=== PATIENT | female | born 1950 | race Hispanic/Latino ===

== ENCOUNTER 2021-04-15 14:44 | Outpatient (CLI) | payer MEDICARE | END 2021-04-15 14:45 | disposition home or self-care (01) | LOC: BICMAMMO 14:44 | PROVIDERS: ATTEND Nurse Practitioner Family | DX: Z12.31 Encounter for screening mammogram for malignant neoplasm of breast (principal) | CPT/HCPCS: 77063; 77067 ==

== ENCOUNTER 2021-09-10 14:05 | Emergency (ER) | payer MEDICARE ==
[2021-09-10] MEDS ORDERED: Ketorolac Tromethamine 30 MG/ML VIAL ONE (15:31)
== END 2021-09-10 17:13 | disposition home or self-care (01) ==
LOC: ERS 14:05
DX: S92.351A Displaced fracture of fifth metatarsal bone, right foot, initial encounter for closed fracture (principal); S93.401A Sprain of unspecified ligament of right ankle, initial encounter; S80.211A Abrasion, right knee, initial encounter; I10 Essential (primary) hypertension; W19.XXXA Unspecified fall, initial encounter
CPT/HCPCS: 96372; J1885

== ENCOUNTER 2022-05-09 11:59 | Outpatient (CLI) | payer MEDICARE | END 2022-05-09 12:00 | disposition home or self-care (01) | LOC: BICMAMMO 11:59 | PROVIDERS: ATTEND Nurse Practitioner Family | DX: Z12.31 Encounter for screening mammogram for malignant neoplasm of breast (principal) | CPT/HCPCS: 77063; 77067 ==

== ENCOUNTER 2023-02-18 10:31 | Emergency (ER) | payer MEDICARE ==
[2023-02-18 11:09] LABS: #Eosinphils 0.2 thou/uL (0.0-0.7); #Monocytes 0.6 thou/uL (0.11-0.59); #Neutrophils 8.5 thou/uL (1.40-6.50); %Basophils 0.4 % (0.0-1.0); %Eosinophils 1.6 % (0.0-10.0); %Lymphocytes 10.3 % (21.0-51.0); %Monocytes 5.3 % (0.0-10.0); Hematocrit 36.1 % (36.0-47.0); Hemoglobin 11.6 g/dL (12.0-16.0); Mean Corpuscular HGB CONC 32.1 g/dL (32.0-36.0); Mean Corpuscular Hemoglobin 27.5 pg (27.0-31.0); Mean Corpuscular Volume 85.5 fl (78.0-98.0); Platelet Count 242 10x3/uL (130-400); RBC Distribution Width 14.7 % (11.5-14.5); Red Blood Cell (RBC) Count 4.22 mill/uL (4.20-5.40); White Blood Cell (WBC) Count 10.4 10x3/uL (4.8-10.8)
[2023-02-18 11:22] LABS: ALT (SGPT) 15 U/L (8-55); AST (SGOT) 20 U/L (5-34); Albumin 4.1 g/dL (3.4-4.8); Alkaline Phosphatase 77 U/L (40-110); Anion Gap 17 mmol/L (10-20); BUN (Urea Nitrogen) 15 mg/dL (9.8-20.1); Bilirubin, Total 0.5 mg/dL (0.2-1.2); Calc. Creatinine Clearance 0 mL/min (70-130); Carbon Dioxide 24 mmol/L (23-31); Chloride 99 mmol/L (98-107); Estimated GFR 51; Globulin 3.9 g/dL (2.4-3.5); Glucose 143 mg/dL (83-110); Potassium 3.4 mmol/L (3.5-5.1); Sodium 137 mmol/L (136-145)
[2023-02-18 11:31] LABS: INR-International Normal Ratio 0.9; Prothrombin Time 12.9 sec (12.0-14.7)
[2023-02-18 11:32] LABS: PTT 29.1 sec (22.9-36.1)
[2023-02-18] MEDS ORDERED: Dexamethasone 10 MG/ML VIAL ONE (12:46)
[2023-02-18] MEDS ORDERED: cefTRIAXone (ROCEPHIN) 1 GM VIAL ONE (13:30)
[2023-02-18 14:24] LABS: Lactic Acid 2.1 mmol/L (0.5-2.2)
== END 2023-02-18 14:05 | disposition home or self-care (01) ==
LOC: ERS 10:31
DX: J15.9 Unspecified bacterial pneumonia (principal); I10 Essential (primary) hypertension; Z79.899 Other long term (current) drug therapy
CPT/HCPCS: 36415; 71045; 80053; 83605; 85025; 85610; 85730; 87040; 93005; 94760; 96365; 96375; J0696; J1100

== ENCOUNTER 2023-03-02 11:34 | Inpatient (IN) | payer MEDICARE ==
[~2023-03-02 11:34] MED LIST: Iopamidol-370 76% 500 ML MDV (1 ML CHARGE) ONE
[2023-03-02 12:26] LABS: #Eosinphils 0.4 thou/uL (0.0-0.7); #Monocytes 0.8 thou/uL (0.11-0.59); #Neutrophils 9.9 thou/uL (1.40-6.50); %Basophils 0.3 % (0.0-1.0); %Monocytes 6.5 % (0.0-10.0); %Neutrophils 80.1 % (42.0-75.0); Hematocrit 36.7 % (36.0-47.0); Hemoglobin 11.8 g/dL (12.0-16.0); Mean Corpuscular HGB CONC 32.2 g/dL (32.0-36.0); Mean Corpuscular Hemoglobin 26.7 pg (27.0-31.0); Platelet Count 291 10x3/uL (130-400); RBC Distribution Width 14.9 % (11.5-14.5); Red Blood Cell (RBC) Count 4.42 mill/uL (4.20-5.40); White Blood Cell (WBC) Count 12.3 10x3/uL (4.8-10.8)
[2023-03-02 12:52] LABS: ALT (SGPT) 31 U/L (8-55); AST (SGOT) 21 U/L (5-34); Albumin 3.8 g/dL (3.4-4.8); Alkaline Phosphatase 83 U/L (40-110); Anion Gap 16 mmol/L (10-20); BUN (Urea Nitrogen) 16 mg/dL (9.8-20.1); Bilirubin, Total 0.9 mg/dL (0.2-1.2); Calc. Creatinine Clearance 0 mL/min (70-130); Calcium 8.7 mg/dL (7.8-10.44); Carbon Dioxide 27 mmol/L (23-31); Chloride 100 mmol/L (98-107); Estimated GFR 52; Globulin 3.9 g/dL (2.4-3.5); Glucose 108 mg/dL (83-110); Lipase 9 U/L (8-78); Magnesium 2.1 mg/dL (1.6-2.6); Potassium 2.9 mmol/L (3.5-5.1); Protein, Total 7.7 g/dL (5.8-8.1); Sodium 140 mmol/L (136-145)
[2023-03-02 12:54] LABS: Troponin I 0.058 ng/mL (< 0.028)
[2023-03-02] MEDS ORDERED: Aspirin Chewable 81 MG TAB ONE (14:08)
[2023-03-02] MEDS ORDERED: Potassium Chloride 20 MEQ TAB ONE (14:08)
[2023-03-02] MEDS ORDERED: cefTRIAXone (ROCEPHIN) 2 GM VIAL ONE (14:39)
[2023-03-02] MEDS ORDERED: Sodium Chloride 0.9% 250 ML 0 ML ONE (14:39)
[2023-03-02] MEDS ORDERED: Sodium Chloride 0.9% 100 ML ONE (14:41)
[2023-03-02] MEDS ORDERED: Ondansetron ODT 4 MG TAB PO PRN (15:36)
[2023-03-02] MEDS ORDERED: Acetaminophen 325 MG TAB PO PRN (15:36)
[2023-03-02] MEDS ORDERED: Furosemide 40 MG/4 ML VIAL ONE (15:43)
[2023-03-02] MEDS ORDERED: Furosemide 40 MG/4 ML VIAL SLOW IVP SCH (15:45)
[2023-03-02 15:46] LABS: Troponin I 0.027 ng/mL (< 0.028)
[2023-03-02 17:48] VITALS: BMI 59.1
[2023-03-02 18:36] LABS: Troponin I 0.029 ng/mL (< 0.028)
[2023-03-02] MEDS: Carvedilol 3.125 MG TAB PO SCH (19:58)
[2023-03-02] MEDS: Atorvastatin Calcium 40 MG TAB PO SCH (19:59)
[2023-03-02] MEDS: Famotidine 20 MG TAB PO SCH (19:59)
[2023-03-02 20:13] LABS: SARS-CoV-2 NAA Rapid Test Not Detected (NotDetected)
[2023-03-02] MEDS ORDERED: Electrolyte Replacement Protocol 1 EACH FS SCH (22:15)
[2023-03-02 22:40] LABS: Anion Gap 13 mmol/L (10-20); BUN (Urea Nitrogen) 18 mg/dL (9.8-20.1); Calc. Creatinine Clearance 110 mL/min (70-130); Calcium 8.5 mg/dL (7.8-10.44); Carbon Dioxide 29 mmol/L (23-31); Chloride 101 mmol/L (98-107); Estimated GFR 51; Glucose 199 mg/dL (83-110); Potassium 3.3 mmol/L (3.5-5.1); Sodium 140 mmol/L (136-145)
[2023-03-03 04:40] LABS: #Eosinphils 0.3 thou/uL (0.0-0.7); #Monocytes 0.6 thou/uL (0.11-0.59); #Neutrophils 5.9 thou/uL (1.40-6.50); %Basophils 0.4 % (0.0-1.0); %Lymphocytes 11.3 % (21.0-51.0); %Monocytes 7.7 % (0.0-10.0); Hematocrit 33.2 % (36.0-47.0); Hemoglobin 10.5 g/dL (12.0-16.0); Mean Corpuscular HGB CONC 31.6 g/dL (32.0-36.0); Mean Corpuscular Hemoglobin 26.9 pg (27.0-31.0); Mean Corpuscular Volume 85.1 fl (78.0-98.0); Mean Platelet Volume 11.5 fL (7.4-10.4); Platelet Count 261 10x3/uL (130-400); RBC Distribution Width 15.2 % (11.5-14.5); White Blood Cell (WBC) Count 7.8 10x3/uL (4.8-10.8)
[2023-03-03 04:44] LABS: Hemoglobin A1c 5.9 % (4.0-6.0)
[2023-03-03 05:04] LABS: Anion Gap 14 mmol/L (10-20); BUN (Urea Nitrogen) 18 mg/dL (9.8-20.1); Calc. Creatinine Clearance 129 mL/min (70-130); Calcium 8.4 mg/dL (7.8-10.44); Carbon Dioxide 29 mmol/L (23-31); Cardiac Risk 4.6 (Less than 4.5); Chloride 101 mmol/L (98-107); Cholesterol 185 mg/dl (< 200 Desired); Estimated GFR 61; Glucose 99 mg/dL (83-110); HDL Cholesterol 40 mg/dL (>60 Neg Risk); LDL Cholesterol, Calculated 125 mg/dL; Potassium 3.2 mmol/L (3.5-5.1); Sodium 141 mmol/L (136-145); Triglycerides 102 mg/dL (Less than 150)
[2023-03-03 05:10] LABS: Magnesium 2.1 mg/dL (1.6-2.6)
[2023-03-03] MEDS: Furosemide 20 MG/2 ML VIAL SLOW IVP SCH ×2 (06:06→15:12)
[2023-03-03] MEDS ORDERED: Potassium Chloride 20 MEQ TAB PO SCH (08:00)
[2023-03-03] MEDS: Potassium Chloride 20 MEQ TAB PO SCH (08:56)
[2023-03-03] MEDS: Carvedilol 3.125 MG TAB PO SCH ×2 (08:56→20:05)
[2023-03-03] MEDS: Famotidine 20 MG TAB PO SCH ×2 (08:56→20:05)
[2023-03-03] MEDS: Aspirin Chewable 81 MG TAB PO SCH (08:56)
[2023-03-03] MEDS ORDERED: Lisinopril 2.5 MG TAB PO SCH (09:00)
[2023-03-03] MEDS ORDERED: Lisinopril 20 MG TAB PO SCH (09:15)
[2023-03-03] MEDS: Lisinopril 20 MG TAB PO SCH (09:37)
[2023-03-03] MEDS: cefTRIAXone\\ROCEPHIN 2 GM in Sodium Chloride 0.9% 100 ML IVPB SCH (15:12)
[2023-03-03] MEDS ORDERED: guaiFENesin ER 600 MG TAB PO SCH (15:15)
[2023-03-03] MEDS ORDERED: Benzonatate 100 MG CAP PO SCH (15:15)
[2023-03-03] MEDS ORDERED: Communication Order-Pharmacy FS SCH (15:39)
[2023-03-03 16:25] LABS: Hematocrit 32.7 % (36.0-47.0); Hemoglobin 10.4 g/dL (12.0-16.0); Platelet Count 256 10x3/uL (130-400)
[2023-03-03] MEDS: Enoxaparin 120 MG/0.8 ML SYRINGE SC SCH (20:05)
[2023-03-03] MEDS: guaiFENesin ER 600 MG TAB PO SCH (20:05)
[2023-03-03] MEDS: Benzonatate 100 MG CAP PO SCH (20:05)
[2023-03-03] MEDS: Atorvastatin Calcium 40 MG TAB PO SCH (20:05)
[2023-03-04 03:28] VITALS: TEMP 98
[2023-03-04 05:12] LABS: Anion Gap 12 mmol/L (10-20); BUN (Urea Nitrogen) 19 mg/dL (9.8-20.1); Calc. Creatinine Clearance 82 mL/min (70-130); Calcium 8.4 mg/dL (7.8-10.44); Carbon Dioxide 29 mmol/L (23-31); Chloride 102 mmol/L (98-107); Estimated GFR 53; Glucose 98 mg/dL (83-110); Potassium 3.4 mmol/L (3.5-5.1); Sodium 140 mmol/L (136-145)
[2023-03-04] MEDS: Furosemide 20 MG/2 ML VIAL SLOW IVP SCH ×2 (06:14→14:05)
[2023-03-04] MEDS ORDERED: Potassium Chloride 20 MEQ TAB PO SCH ×2 (08:00)
[2023-03-04] MEDS: Enoxaparin 120 MG/0.8 ML SYRINGE SC SCH (08:27)
[2023-03-04] MEDS: guaiFENesin ER 600 MG TAB PO SCH (08:28)
[2023-03-04] MEDS: Benzonatate 100 MG CAP PO SCH ×2 (08:28→14:05)
[2023-03-04] MEDS: Carvedilol 3.125 MG TAB PO SCH (08:28)
[2023-03-04] MEDS: Lisinopril 20 MG TAB PO SCH (08:28)
[2023-03-04] MEDS: Aspirin Chewable 81 MG TAB PO SCH (08:28)
[2023-03-04] MEDS: Potassium Chloride 20 MEQ TAB PO SCH (08:33)
[2023-03-04] MEDS: Famotidine 20 MG TAB PO SCH (08:34)
[2023-03-04 11:12] VITALS: BP 99/53
[2023-03-04] MEDS: cefTRIAXone\\ROCEPHIN 2 GM in Sodium Chloride 0.9% 100 ML IVPB SCH (14:05)
== END 2023-03-04 17:35 | disposition home or self-care (01) | DRG 291 ==
LOC: ERS 11:34 → 2SW 16:18 → OBSVTOIN 03-03 09:56
PROVIDERS: ADMIT Internal Medicine; ATTEND Internal Medicine
DX: I11.0 Hypertensive heart disease with heart failure (principal); I50.33 Acute on chronic diastolic (congestive) heart failure; J18.9 Pneumonia, unspecified organism; J96.01 Acute respiratory failure with hypoxia; I48.92 Unspecified atrial flutter; E87.6 Hypokalemia; Z90.49 Acquired absence of other specified parts of digestive tract; Z83.3 Family history of diabetes mellitus; Z79.899 Other long term (current) drug therapy; Z98.890 Other specified postprocedural states; Z79.82 Long term (current) use of aspirin; I35.1 Nonrheumatic aortic (valve) insufficiency; E78.00 Pure hypercholesterolemia, unspecified; Z11.52 Encounter for screening for COVID-19
CPT/HCPCS: 36415; 71045; 71275; 80048; 80053; 80061; 83036; 83690; 83735; 83880; 84145; 84443; 84484; 85025; 93005; 93010; 93306; 93798; 96365; 96372; 96375; 96376; G0378; J0696; J1650; J1940; J3490; J7050; Q9967; U0002

== ENCOUNTER 2023-03-11 16:57 | Inpatient (IN) | payer MEDICARE ==
[2023-03-11 17:33] LABS: #Eosinphils 0.3 thou/uL (0.0-0.7); #Monocytes 0.8 thou/uL (0.11-0.59); #Neutrophils 6.3 thou/uL (1.40-6.50); %Basophils 0.5 % (0.0-1.0); %Eosinophils 3.2 % (0.0-10.0); %Lymphocytes 15.4 % (21.0-51.0); %Monocytes 8.5 % (0.0-10.0); %Neutrophils 71.8 % (42.0-75.0); Hematocrit 37.5 % (36.0-47.0); Hemoglobin 11.6 g/dL (12.0-16.0); Mean Corpuscular HGB CONC 30.9 g/dL (32.0-36.0); Mean Corpuscular Volume 87.2 fl (78.0-98.0); Mean Platelet Volume 11.4 fL (7.4-10.4); Platelet Count 214 10x3/uL (130-400); RBC Distribution Width 15.7 % (11.5-14.5); White Blood Cell (WBC) Count 8.8 10x3/uL (4.8-10.8)
[2023-03-11] MEDS ORDERED: LevoFLOXacin 750 mg/D5W 150 ml Premix Bag ONE (17:46)
[2023-03-11 18:00] LABS: Troponin I 0.018 ng/mL (< 0.028)
[2023-03-11 18:03] LABS: ALT (SGPT) 26 U/L (8-55); AST (SGOT) 21 U/L (5-34); Alkaline Phosphatase 84 U/L (40-110); Anion Gap 14 mmol/L (10-20); BUN (Urea Nitrogen) 15 mg/dL (9.8-20.1); Bilirubin, Total 0.8 mg/dL (0.2-1.2); Calc. Creatinine Clearance 0 mL/min (70-130); Carbon Dioxide 24 mmol/L (23-31); Chloride 105 mmol/L (98-107); Estimated GFR 56; Globulin 3.7 g/dL (2.4-3.5); Glucose 128 mg/dL (83-110); Lipase 29 U/L (8-78); Potassium 4.5 mmol/L (3.5-5.1); Protein, Total 7.7 g/dL (5.8-8.1); Sodium 138 mmol/L (136-145)
[2023-03-11] MEDS ORDERED: Aspirin Chewable 81 MG TAB ONE (19:31)
[2023-03-11] MEDS ORDERED: Morphine 4 MG/ML VIAL ONE (19:31)
[2023-03-11] MEDS ORDERED: Ondansetron PF 4 MG/2 ML Vial ONE (19:50)
[2023-03-11 20:27] LABS: Bacteria/HPF None Seen HPF (None Seen); Bilirubin Negative (Negative); Blood, Urine 1+ (Negative); CAUTI Indications for Culture Pelvic or flank pain; Clarity Clear (Clear); Glucose, Urine (Dipstick) Normal (Negative); Ketone, Urine Negative (Negative); Leukocyte Negative Leu/uL (Negative); Nitrite Negative (Negative); Protein, Urine (Dipstick) 20 mg/dL (Neg-Trace); Specific Gravity, Urine 1.011 (1.002-1.036); Squamous Epithelial 0-3 HPF (0-3); Urobilinogen Normal mg/dL (Less than 2); WBC/HPF 0-3 HPF (0-3); pH, Urine 5.5 (5.0-9.0)
[2023-03-11 20:31] LABS: Urine Culture Reflex No No
[2023-03-11] MEDS ORDERED: Furosemide 40 MG/4 ML VIAL ONE (21:23)
[2023-03-12] MEDS ORDERED: Ondansetron PF 4 MG/2 ML Vial IVP PRN (00:30)
[2023-03-12] MEDS ORDERED: Ondansetron ODT 4 MG TAB SL PRN (00:30)
[2023-03-12] MEDS ORDERED: Acetaminophen 325 MG TAB PO PRN (00:30)
[2023-03-12 01:02] VITALS: BMI 44.8
[2023-03-12] MEDS ORDERED: Albuterol 200 PUFF (6.7GM INHALER) INH PRN (01:09)
[2023-03-12] MEDS ORDERED: Calcium Carbonate 500 MG ChewTAB PO PRN (01:12)
[2023-03-12 01:42] LABS: Troponin I 0.024 ng/mL (< 0.028)
[2023-03-12 04:37] LABS: #Eosinphils 0.1 thou/uL (0.0-0.7); #Monocytes 0.6 thou/uL (0.11-0.59); #Neutrophils 8.6 thou/uL (1.40-6.50); %Basophils 0.3 % (0.0-1.0); %Eosinophils 0.7 % (0.0-10.0); %Lymphocytes 6.9 % (21.0-51.0); %Monocytes 5.5 % (0.0-10.0); %Neutrophils 86.3 % (42.0-75.0); Hematocrit 33.3 % (36.0-47.0); Hemoglobin 10.2 g/dL (12.0-16.0); Mean Corpuscular HGB CONC 30.6 g/dL (32.0-36.0); Mean Corpuscular Hemoglobin 26.6 pg (27.0-31.0); Mean Corpuscular Volume 86.7 fl (78.0-98.0); Mean Platelet Volume 12.2 fL (7.4-10.4); Platelet Count 187 10x3/uL (130-400); RBC Distribution Width 15.6 % (11.5-14.5); Red Blood Cell (RBC) Count 3.84 mill/uL (4.20-5.40); White Blood Cell (WBC) Count 9.9 10x3/uL (4.8-10.8)
[2023-03-12 05:16] LABS: Anion Gap 14 mmol/L (10-20); BUN (Urea Nitrogen) 15 mg/dL (9.8-20.1); Calc. Creatinine Clearance 92 mL/min (70-130); Calcium 8.5 mg/dL (7.8-10.44); Carbon Dioxide 24 mmol/L (23-31); Chloride 106 mmol/L (98-107); Estimated GFR 57; Glucose 105 mg/dL (83-110); Magnesium 2.1 mg/dL (1.6-2.6); Potassium 4.6 mmol/L (3.5-5.1); Sodium 139 mmol/L (136-145)
[2023-03-12] MEDS: Carvedilol 3.125 MG TAB PO SCH ×2 (08:18→17:50)
[2023-03-12] MEDS: Furosemide 40 MG TAB PO SCH (08:18)
[2023-03-12] MEDS ORDERED: Famotidine 20 MG TAB PO SCH (09:00)
[2023-03-12] MEDS: Apixaban 5 MG TAB PO SCH ×2 (10:47→21:44)
[2023-03-12] MEDS: Famotidine 20 MG TAB PO SCH (21:44)
[2023-03-12] MEDS: Atorvastatin Calcium 40 MG TAB PO SCH (21:44)
[2023-03-13] MEDS: Furosemide 40 MG TAB PO SCH (10:22)
[2023-03-13] MEDS: Famotidine 20 MG TAB PO SCH ×2 (10:24→21:58)
[2023-03-13] MEDS: Carvedilol 3.125 MG TAB PO SCH ×2 (10:24→17:23)
[2023-03-13] MEDS: Apixaban 5 MG TAB PO SCH ×2 (10:24→21:58)
[2023-03-13 10:27] LABS: #Eosinphils 0.2 thou/uL (0.0-0.7); #Monocytes 0.5 thou/uL (0.11-0.59); #Neutrophils 5.9 thou/uL (1.40-6.50); %Basophils 0.4 % (0.0-1.0); %Eosinophils 2.4 % (0.0-10.0); %Lymphocytes 10.7 % (21.0-51.0); %Monocytes 6.2 % (0.0-10.0); Hematocrit 34.7 % (36.0-47.0); Hemoglobin 10.5 g/dL (12.0-16.0); Mean Corpuscular HGB CONC 30.3 g/dL (32.0-36.0); Mean Corpuscular Hemoglobin 26.4 pg (27.0-31.0); Mean Corpuscular Volume 87.2 fl (78.0-98.0); Mean Platelet Volume 11.6 fL (7.4-10.4); Platelet Count 206 10x3/uL (130-400); RBC Distribution Width 15.5 % (11.5-14.5); Red Blood Cell (RBC) Count 3.98 mill/uL (4.20-5.40); White Blood Cell (WBC) Count 7.4 10x3/uL (4.8-10.8)
[2023-03-13 10:45] LABS: Anion Gap 13 mmol/L (10-20); BUN (Urea Nitrogen) 15 mg/dL (9.8-20.1); Calc. Creatinine Clearance 81 mL/min (70-130); Calcium 8.9 mg/dL (7.8-10.44); Carbon Dioxide 29 mmol/L (23-31); Chloride 105 mmol/L (98-107); Estimated GFR 51; Glucose 93 mg/dL (83-110); Sodium 143 mmol/L (136-145)
[2023-03-13] MEDS: Atorvastatin Calcium 40 MG TAB PO SCH (21:58)
[2023-03-14] MEDS: Benzonatate 100 MG CAP PO PRN (00:09)
[2023-03-14 05:01] LABS: Anion Gap 12 mmol/L (10-20); BUN (Urea Nitrogen) 15 mg/dL (9.8-20.1); Calc. Creatinine Clearance 78 mL/min (70-130); Calcium 8.7 mg/dL (7.8-10.44); Carbon Dioxide 29 mmol/L (23-31); Chloride 102 mmol/L (98-107); Estimated GFR 48; Glucose 99 mg/dL (83-110); Potassium 3.9 mmol/L (3.5-5.1); Sodium 139 mmol/L (136-145)
[2023-03-14] MEDS: Apixaban 5 MG TAB PO SCH ×2 (08:20→21:21)
[2023-03-14] MEDS: Famotidine 20 MG TAB PO SCH ×2 (08:20→21:21)
[2023-03-14] MEDS: Carvedilol 3.125 MG TAB PO SCH ×2 (08:20→17:11)
[2023-03-14] MEDS: Furosemide 40 MG TAB PO SCH (08:20)
[2023-03-14] MEDS: Polyethylene Glycol 3350 17 GM Packet PO PRN (09:58)
[2023-03-14] MEDS: Atorvastatin Calcium 40 MG TAB PO SCH (21:21)
[2023-03-15 05:39] LABS: Anion Gap 13 mmol/L (10-20); BUN (Urea Nitrogen) 16 mg/dL (9.8-20.1); Calc. Creatinine Clearance 88 mL/min (70-130); Calcium 8.6 mg/dL (7.8-10.44); Carbon Dioxide 31 mmol/L (23-31); Chloride 102 mmol/L (98-107); Estimated GFR 56; Glucose 94 mg/dL (83-110); Potassium 3.7 mmol/L (3.5-5.1); Sodium 142 mmol/L (136-145)
[2023-03-15] MEDS: Carvedilol 3.125 MG TAB PO SCH ×2 (08:27→17:17)
[2023-03-15] MEDS: Famotidine 20 MG TAB PO SCH ×2 (08:27→21:27)
[2023-03-15] MEDS: Apixaban 5 MG TAB PO SCH ×2 (08:27→21:27)
[2023-03-15] MEDS: Furosemide 40 MG TAB PO SCH (08:27)
[2023-03-15] MEDS: Polyethylene Glycol 3350 17 GM Packet PO PRN (08:34)
[2023-03-15] MEDS: Benzonatate 100 MG CAP PO PRN ×2 (08:34→21:26)
[2023-03-15] MEDS: Atorvastatin Calcium 40 MG TAB PO SCH (21:26)
[2023-03-16 06:06] LABS: Anion Gap 13 mmol/L (10-20); BUN (Urea Nitrogen) 16 mg/dL (9.8-20.1); Calc. Creatinine Clearance 88 mL/min (70-130); Carbon Dioxide 31 mmol/L (23-31); Chloride 101 mmol/L (98-107); Estimated GFR 57; Glucose 92 mg/dL (83-110); Potassium 3.7 mmol/L (3.5-5.1); Sodium 141 mmol/L (136-145)
[2023-03-16] MEDS: Apixaban 5 MG TAB PO SCH ×2 (08:50→20:59)
[2023-03-16] MEDS: Carvedilol 3.125 MG TAB PO SCH ×2 (08:50→17:12)
[2023-03-16] MEDS: Furosemide 40 MG TAB PO SCH (08:50)
[2023-03-16] MEDS: Famotidine 20 MG TAB PO SCH ×2 (08:50→20:59)
[2023-03-16] MEDS: Acetaminophen 325 MG TAB PO PRN (13:57)
[2023-03-16] MEDS: Benzonatate 100 MG CAP PO PRN (13:58)
[2023-03-16] MEDS ORDERED: Furosemide 40 MG/4 ML VIAL SLOW IVP SCH (16:30)
[2023-03-16] MEDS: Atorvastatin Calcium 40 MG TAB PO SCH (20:59)
[2023-03-17 04:44] LABS: Anion Gap 12 mmol/L (10-20); BUN (Urea Nitrogen) 15 mg/dL (9.8-20.1); Calc. Creatinine Clearance 99 mL/min (70-130); Calcium 8.6 mg/dL (7.8-10.44); Carbon Dioxide 32 mmol/L (23-31); Chloride 100 mmol/L (98-107); Estimated GFR 65; Glucose 91 mg/dL (83-110); Potassium 3.4 mmol/L (3.5-5.1); Sodium 141 mmol/L (136-145)
[2023-03-17] MEDS: Furosemide 40 MG TAB PO SCH (08:36)
[2023-03-17] MEDS: Acetaminophen 325 MG TAB PO PRN (08:37)
[2023-03-17] MEDS: Apixaban 5 MG TAB PO SCH ×2 (08:37→21:10)
[2023-03-17] MEDS: Carvedilol 3.125 MG TAB PO SCH ×2 (08:37→17:08)
[2023-03-17] MEDS: Famotidine 20 MG TAB PO SCH ×2 (08:37→21:10)
[2023-03-17] MEDS: Atorvastatin Calcium 40 MG TAB PO SCH (21:10)
[2023-03-18 08:18] LABS: Anion Gap 13 mmol/L (10-20); BUN (Urea Nitrogen) 11 mg/dL (9.8-20.1); Calc. Creatinine Clearance 103 mL/min (70-130); Calcium 9.3 mg/dL (7.8-10.44); Carbon Dioxide 30 mmol/L (23-31); Chloride 100 mmol/L (98-107); Estimated GFR 69; Glucose 94 mg/dL (83-110); Sodium 139 mmol/L (136-145)
[2023-03-18] MEDS: Apixaban 5 MG TAB PO SCH (08:24)
[2023-03-18] MEDS: Famotidine 20 MG TAB PO SCH (08:24)
[2023-03-18] MEDS: Furosemide 40 MG TAB PO SCH (08:24)
[2023-03-18] MEDS: Carvedilol 3.125 MG TAB PO SCH ×2 (08:24→17:26)
[2023-03-18 15:47] VITALS: BP 146/67; TEMP 98.1
== END 2023-03-18 17:51 | disposition home or self-care (01) | DRG 291 ==
LOC: ERS 16:57 → 2SE 22:22 → OBSVTOIN 03-13 14:50
PROVIDERS: ADMIT Student in an Organized Health Care Education/Training Program; ATTEND Family Medicine
DX: I11.0 Hypertensive heart disease with heart failure (principal); I50.33 Acute on chronic diastolic (congestive) heart failure; I48.92 Unspecified atrial flutter; I48.91 Unspecified atrial fibrillation; I27.20 Pulmonary hypertension, unspecified; I34.0 Nonrheumatic mitral (valve) insufficiency; D64.9 Anemia, unspecified; Z79.51 Long term (current) use of inhaled steroids; Z79.899 Other long term (current) drug therapy; Z79.01 Long term (current) use of anticoagulants; Z79.82 Long term (current) use of aspirin; Z90.49 Acquired absence of other specified parts of digestive tract; Z98.890 Other specified postprocedural states
CPT/HCPCS: 36415; 71045; 71046; 80048; 80053; 81001; 83605; 83690; 83735; 83880; 84145; 84484; 85025; 87040; 87086; 93005; 93798; 94760; 96365; 96366; 96375; 96376; G0378; J1940; J1956; J2270; J2405

== ENCOUNTER 2023-03-24 16:07 | Emergency (ER) | payer MEDICARE ==
[2023-03-24 16:52] LABS: #Eosinphils 0.3 thou/uL (0.0-0.7); #Monocytes 0.8 thou/uL (0.11-0.59); #Neutrophils 5.4 thou/uL (1.40-6.50); %Basophils 0.4 % (0.0-1.0); %Eosinophils 3.3 % (0.0-10.0); %Lymphocytes 15.5 % (21.0-51.0); %Monocytes 10.1 % (0.0-10.0); %Neutrophils 70.3 % (42.0-75.0); Hematocrit 35.7 % (36.0-47.0); Hemoglobin 11.1 g/dL (12.0-16.0); Mean Corpuscular HGB CONC 31.1 g/dL (32.0-36.0); Mean Corpuscular Hemoglobin 26.7 pg (27.0-31.0); Mean Platelet Volume 11.8 fL (7.4-10.4); Platelet Count 242 10x3/uL (130-400); RBC Distribution Width 15.1 % (11.5-14.5); Red Blood Cell (RBC) Count 4.15 mill/uL (4.20-5.40); White Blood Cell (WBC) Count 7.6 10x3/uL (4.8-10.8)
[2023-03-24 17:12] LABS: ALT (SGPT) 17 U/L (8-55); AST (SGOT) 19 U/L (5-34); Albumin 3.8 g/dL (3.4-4.8); Alkaline Phosphatase 79 U/L (40-110); Anion Gap 12 mmol/L (10-20); BUN (Urea Nitrogen) 15 mg/dL (9.8-20.1); Bilirubin, Total 0.8 mg/dL (0.2-1.2); Calc. Creatinine Clearance 0 mL/min (70-130); Calcium 9.1 mg/dL (7.8-10.44); Carbon Dioxide 25 mmol/L (23-31); Chloride 102 mmol/L (98-107); Estimated GFR 56; Globulin 3.9 g/dL (2.4-3.5); Glucose 102 mg/dL (83-110); Lipase 23 U/L (8-78); Potassium 4.1 mmol/L (3.5-5.1); Protein, Total 7.7 g/dL (5.8-8.1); Sodium 135 mmol/L (136-145)
[2023-03-24 17:14] LABS: Troponin I 0.034 ng/mL (< 0.028)
[2023-03-24] MEDS ORDERED: Nitroglycerin 0.4 MG TAB 1 EACH ONE (17:29)
[2023-03-24 19:41] LABS: Troponin I 0.024 ng/mL (< 0.028)
[2023-03-24] MEDS ORDERED: Furosemide 100 MG/10 ML VIAL ONE (19:54)
== END 2023-03-24 21:22 | disposition home or self-care (01) ==
LOC: ERS 16:07
DX: I11.0 Hypertensive heart disease with heart failure (principal); I50.33 Acute on chronic diastolic (congestive) heart failure; I48.91 Unspecified atrial fibrillation; I48.92 Unspecified atrial flutter; Z79.82 Long term (current) use of aspirin; Z79.01 Long term (current) use of anticoagulants; Z79.899 Other long term (current) drug therapy
CPT/HCPCS: 36415; 71045; 80053; 83690; 83880; 84484; 85025; 93005; 96374; J1940

== ENCOUNTER 2023-11-01 14:33 | Inpatient (IN) | payer MEDICARE, OTHER ==
[2023-11-01 15:42] LABS: #Basophils 0.03 10x3/uL (0.0-0.2); %Basophils 0.3 % (0.0-1.0); %Eosinophils 0.5 % (0.0-10.0); %Lymphocytes 6.8 % (21.0-51.0); %Monocytes 6.2 % (0.0-10.0); %Neutrophils 85.4 % (42.0-75.0); Hematocrit 23.2 % (36.0-47.0); Hemoglobin 7.1 g/dL (12.0-16.0); Mean Corpuscular HGB CONC 30.6 g/dL (32.0-36.0); Mean Corpuscular Hemoglobin 24.3 pg (27.0-31.0); Mean Corpuscular Volume 79.5 fL (78.0-98.0); Mean Platelet Volume 11.3 fL (7.4-10.4); Platelet Count 363 10x3/uL (130-400); Red Blood Cell (RBC) Count 2.92 mill/uL (4.20-5.40)
[2023-11-01 15:58] LABS: ALT (SGPT) 13 U/L (8-55); AST (SGOT) 18 U/L (5-34); Albumin 3.4 g/dL (3.4-4.8); Alkaline Phosphatase 90 U/L (40-110); Anion Gap 14 mmol/L (10-20); BUN (Urea Nitrogen) 45 mg/dL (9.8-20.1); Bilirubin, Total 0.5 mg/dL (0.2-1.2); Calc. Creatinine Clearance 0 mL/min (70-130); Calcium 9.4 mg/dL (7.8-10.44); Carbon Dioxide 27 mmol/L (23-31); Chloride 100 mmol/L (98-107); Estimated GFR 44; Globulin 4.2 g/dL (2.4-3.5); Glucose 126 mg/dL (83-110); Potassium 2.9 mmol/L (3.5-5.1); Protein, Total 7.6 g/dL (5.8-8.1); Sodium 138 mmol/L (136-145)
[2023-11-01 16:02] LABS: Troponin I 0.025 ng/mL (< 0.028)
[2023-11-01] MEDS ORDERED: Ketorolac Tromethamine 30 MG (1 mL) VIAL ONE (17:06)
[2023-11-01] MEDS ORDERED: Potassium Chloride 20 MEQ TAB ONE (18:41)
[2023-11-01 19:41] LABS: Troponin I 0.034 ng/mL (< 0.028)
[2023-11-01] MEDS ORDERED: Aspirin Chewable 81 MG TAB ONE (20:42)
[2023-11-01] MEDS ORDERED: Ondansetron PF 4 MG/2 ML Vial IVP PRN (21:02)
[2023-11-01] MEDS ORDERED: Acetaminophen 325 MG TAB PO PRN (21:02)
[2023-11-01] MEDS ORDERED: Nitroglycerin 0.4 MG TAB (25 Tab Bottle) SL PRN (21:35)
[2023-11-01 23:23] VITALS: BMI 38.7
[2023-11-01 23:30] LABS: #Basophils Less than 0.03 10x3/uL (0.0-0.2); %Basophils 0.2 % (0.0-1.0); %Eosinophils 0.6 % (0.0-10.0); %Lymphocytes 11.2 % (21.0-51.0); %Monocytes 7.5 % (0.0-10.0); Hematocrit 20.2 % (36.0-47.0); Hemoglobin 6.2 g/dL (12.0-16.0); Mean Corpuscular HGB CONC 30.7 g/dL (32.0-36.0); Mean Corpuscular Hemoglobin 24.5 pg (27.0-31.0); Mean Corpuscular Volume 79.8 fL (78.0-98.0); Mean Platelet Volume 10.9 fL (7.4-10.4); Platelet Count 309 10x3/uL (130-400); RBC Distribution Width 17.1 % (11.5-14.5); Red Blood Cell (RBC) Count 2.53 mill/uL (4.20-5.40)
[2023-11-01 23:44] LABS: INR-International Normal Ratio 1.4; Prothrombin Time 16.8 sec (12.0-14.7)
[2023-11-01 23:45] LABS: PTT 32.5 sec (22.9-36.1)
[2023-11-02 00:03] LABS: Anion Gap 13 mmol/L (10-20); BUN (Urea Nitrogen) 46 mg/dL (9.8-20.1); Calc. Creatinine Clearance 61 mL/min (70-130); Calcium 8.8 mg/dL (7.8-10.44); Carbon Dioxide 27 mmol/L (23-31); Chloride 102 mmol/L (98-107); Estimated GFR 42; Glucose 128 mg/dL (83-110); Iron 10 ug/dL (50-170); Iron Binding Capacity, Total 318 mcg/dL (265-497); Potassium 2.9 mmol/L (3.5-5.1); Sodium 139 mmol/L (136-145)
[2023-11-02 00:04] LABS: Troponin I 0.036 ng/mL (< 0.028)
[2023-11-02 00:25] LABS: Magnesium 2.5 mg/dL (1.6-2.6)
[2023-11-02] MEDS: Potassium Chloride 20 MEQ in Premix 1 BAG IVPB SCH (01:17)
[2023-11-02] MEDS: Pantoprazole 40 MG VIAL IVP SCH ×2 (01:17→08:55)
[2023-11-02 06:51] LABS: #Basophils 0.03 10x3/uL (0.0-0.2); %Basophils 0.4 % (0.0-1.0); %Eosinophils 2.6 % (0.0-10.0); %Lymphocytes 14.7 % (21.0-51.0); %Monocytes 8.4 % (0.0-10.0); %Neutrophils 73.3 % (42.0-75.0); Hematocrit 22.8 % (36.0-47.0); Mean Corpuscular HGB CONC 30.7 g/dL (32.0-36.0); Mean Corpuscular Hemoglobin 25.4 pg (27.0-31.0); Mean Corpuscular Volume 82.6 fL (78.0-98.0); Mean Platelet Volume 11.3 fL (7.4-10.4); Platelet Count 277 10x3/uL (130-400); RBC Distribution Width 16.8 % (11.5-14.5); Red Blood Cell (RBC) Count 2.76 mill/uL (4.20-5.40)
[2023-11-02 07:07] LABS: Anion Gap 12 mmol/L (10-20); BUN (Urea Nitrogen) 44 mg/dL (9.8-20.1); Calc. Creatinine Clearance 65 mL/min (70-130); Calcium 8.3 mg/dL (7.8-10.44); Carbon Dioxide 25 mmol/L (23-31); Cardiac Risk 3.6 (Less than 4.5); Chloride 106 mmol/L (98-107); Cholesterol 123 mg/dl (< 200 Desired); Estimated GFR 45; Glucose 120 mg/dL (83-110); HDL Cholesterol 34 mg/dL (>60 Neg Risk); LDL Cholesterol, Calculated 69 mg/dL; Potassium 3.5 mmol/L (3.5-5.1); Sodium 139 mmol/L (136-145); Triglycerides 101 mg/dL (Less than 150)
[2023-11-02 07:12] LABS: Troponin I 0.032 ng/mL (< 0.028)
[2023-11-02] MEDS: Sodium Ferric Gluconate 250 MG in Sodium Chloride 0.9% 250 ML 250 ML IVPB SCH (09:07)
[2023-11-02] MEDS: Sodium Chloride 0.9% 1,000 ML IV SCH (11:11)
[2023-11-02 13:02] LABS: Hematocrit 24.8 % (36.0-47.0); Hemoglobin 7.6 g/dL (12.0-16.0)
[2023-11-02] MEDS ORDERED: Albuterol 200 PUFF INH INH PRN (15:27)
[2023-11-02] MEDS: Carvedilol 3.125 MG TAB PO SCH (16:47)
[2023-11-02] MEDS: Atorvastatin Calcium 40 MG TAB PO SCH (20:53)
[2023-11-03 03:54] LABS: #Basophils 0.04 10x3/uL (0.0-0.2); %Basophils 0.4 % (0.0-1.0); %Eosinophils 3.4 % (0.0-10.0); %Lymphocytes 11.5 % (21.0-51.0); %Neutrophils 77.2 % (42.0-75.0); Hematocrit 22.1 % (36.0-47.0); Hemoglobin 6.7 g/dL (12.0-16.0); Mean Corpuscular HGB CONC 30.3 g/dL (32.0-36.0); Mean Corpuscular Hemoglobin 24.5 pg (27.0-31.0); Mean Platelet Volume 10.9 fL (7.4-10.4); Platelet Count 293 10x3/uL (130-400); RBC Distribution Width 16.8 % (11.5-14.5); Red Blood Cell (RBC) Count 2.73 mill/uL (4.20-5.40)
[2023-11-03 04:19] LABS: Anion Gap 13 mmol/L (10-20); BUN (Urea Nitrogen) 29 mg/dL (9.8-20.1); Calc. Creatinine Clearance 88 mL/min (70-130); Calcium 8.3 mg/dL (7.8-10.44); Carbon Dioxide 24 mmol/L (23-31); Chloride 108 mmol/L (98-107); Estimated GFR 65; Glucose 99 mg/dL (83-110); Magnesium 2.3 mg/dL (1.6-2.6); Potassium 3.5 mmol/L (3.5-5.1); Sodium 141 mmol/L (136-145)
[2023-11-03] MEDS: Ferrous Sulfate 325 MG TAB PO SCH (09:57)
[2023-11-03 11:50] LABS: Hematocrit 25.6 % (36.0-47.0); Hemoglobin 7.9 g/dL (12.0-16.0); Platelet Count 288 10x3/uL (130-400)
[2023-11-03] MEDS ORDERED: Iopamidol 370 76% 100 ML VIAL ONE (12:18)
[2023-11-03 19:36] LABS: Hematocrit 26.4 % (36.0-47.0); Hemoglobin 8.2 g/dL (12.0-16.0); Platelet Count 310 10x3/uL (130-400)
[2023-11-04 04:40] LABS: #Basophils 0.03 10x3/uL (0.0-0.2); %Basophils 0.3 % (0.0-1.0); %Eosinophils 2.7 % (0.0-10.0); %Lymphocytes 8.3 % (21.0-51.0); %Monocytes 6.3 % (0.0-10.0); %Neutrophils 81.9 % (42.0-75.0); Hematocrit 24.7 % (36.0-47.0); Hemoglobin 7.6 g/dL (12.0-16.0); Mean Corpuscular HGB CONC 30.8 g/dL (32.0-36.0); Mean Corpuscular Hemoglobin 25.1 pg (27.0-31.0); Mean Corpuscular Volume 81.5 fL (78.0-98.0); Mean Platelet Volume 11.4 fL (7.4-10.4); Platelet Count 293 10x3/uL (130-400); RBC Distribution Width 17.2 % (11.5-14.5); Red Blood Cell (RBC) Count 3.03 mill/uL (4.20-5.40)
[2023-11-04 05:05] LABS: Anion Gap 10 mmol/L (10-20); BUN (Urea Nitrogen) 20 mg/dL (9.8-20.1); Calc. Creatinine Clearance 91 mL/min (70-130); Calcium 8.3 mg/dL (7.8-10.44); Carbon Dioxide 24 mmol/L (23-31); Chloride 108 mmol/L (98-107); Estimated GFR 65; Glucose 99 mg/dL (83-110); Magnesium 2.4 mg/dL (1.6-2.6); Potassium 3.6 mmol/L (3.5-5.1); Sodium 138 mmol/L (136-145)
[2023-11-04 09:45] VITALS: BP 126/79; TEMP 98.7
[2023-11-04] MEDS: Pantoprazole DR 40 MG TAB PO SCH (09:46)
== END 2023-11-04 11:48 | disposition home or self-care (01) | DRG 812 ==
LOC: ERS 14:33 → ERHOLD 21:02 → 2SW 22:23 → OBSVTOIN 11-02 14:14
PROVIDERS: ADMIT Internal Medicine; ATTEND Internal Medicine
PROC: 30233N1 Transfusion of Nonautologous Red Blood Cells into Peripheral Vein, Percutaneous Approach (ICD-10-PCS; principal; 2023-11-02)
DX: D50.9 Iron deficiency anemia, unspecified (principal); I50.32 Chronic diastolic (congestive) heart failure; N17.9 Acute kidney failure, unspecified; I13.0 Hypertensive heart and chronic kidney disease with heart failure and stage 1 through stage 4 chronic kidney disease, or unspecified chronic kidney disease; I48.92 Unspecified atrial flutter; I48.0 Paroxysmal atrial fibrillation; E87.6 Hypokalemia; E78.5 Hyperlipidemia, unspecified; N18.9 Chronic kidney disease, unspecified; Z79.01 Long term (current) use of anticoagulants; Z79.82 Long term (current) use of aspirin; Z79.899 Other long term (current) drug therapy; Z86.73 Personal history of transient ischemic attack (TIA), and cerebral infarction without residual deficits; Z90.49 Acquired absence of other specified parts of digestive tract
CPT/HCPCS: 36415; 36430; 71046; 71275; 74177; 80048; 80053; 80061; 83540; 83550; 83735; 83880; 84484; 85025; 85610; 85730; 86850; 86900; 86901; 93005; 94760; 96374; 96375; 96376; G0378; J1885; J2470; J2916; J3480; J7030; J7050; P9016; Q9967

== ENCOUNTER 2024-06-03 09:38 | Day surgery (SDC) | payer OTHER ==
[2024-05-29 14:29] VITALS: BMI 40.0
[2024-06-03] MEDS ORDERED: Verapamil 5 MG/2 ML VIAL ONE (12:04)
[2024-06-03] MEDS ORDERED: Midazolam HCl 2 mg/2 ml Vial ONE (12:04)
[2024-06-03] MEDS ORDERED: fentaNYL 50 mcg/mL 1 mL Vial ONE (12:04)
[2024-06-03] MEDS ORDERED: Heparin 10,000 UNITS/ 10 ML VIAL ONE (12:05)
[2024-06-03] MEDS ORDERED: Nitroglycerin 50 MG/250 ML BOT 250 ML ONE (12:05)
[2024-06-03] MEDS ORDERED: Atropine Sulfate 1 mg/10 ml Syringe ONE (13:07)
[2024-06-03] MEDS ORDERED: PHENYLEPHRINE-NS 100 MCG/ML 10 ML SYRINGE ONE (13:07)
[2024-06-03] MEDS ORDERED: Iopamidol 370 76% 100 ML VIAL ONE (14:45)
== END 2024-06-03 15:42 | disposition home or self-care (01) ==
LOC: CCL 09:38
PROVIDERS: ATTEND Internal Medicine Cardiovascular Disease
PROC: 4A023N7 Measurement of Cardiac Sampling and Pressure, Left Heart, Percutaneous Approach (ICD-10-PCS; principal; 2024-06-03)
DX: I48.91 Unspecified atrial fibrillation (principal); I34.0 Nonrheumatic mitral (valve) insufficiency; I35.1 Nonrheumatic aortic (valve) insufficiency; I11.0 Hypertensive heart disease with heart failure; I50.23 Acute on chronic systolic (congestive) heart failure; E78.5 Hyperlipidemia, unspecified; Z98.51 Tubal ligation status; Z90.49 Acquired absence of other specified parts of digestive tract; Z79.01 Long term (current) use of anticoagulants; Z79.899 Other long term (current) drug therapy
CPT/HCPCS: 93458; C1769; C1894; J1644; J2250; J3010; 99152; 99153; J0461; Q9967